=== PATIENT | male | born 1990 | race Caucasian/White ===

== ENCOUNTER 2020-10-26 11:41 | Emergency (ER) | payer BC, MEDICAID ==
[~2020-10-26] VITALS: Ht 175.3 cm; Wt 72.6 kg
[2020-10-26 11:49] VITALS: BP_SYST 130
[2020-10-26 13:02] VITALS: BP_SYST 130
== END 2020-10-26 13:02 | disposition home or self-care (01) ==
LOC: SED 11:41
DX: S00.33XA Contusion of nose, initial encounter (principal); Z88.0 Allergy status to penicillin; W21.05XA Struck by basketball, initial encounter; Y93.67 Activity, basketball; Y92.89 Other specified places as the place of occurrence of the external cause; Y99.8 Other external cause status
CPT/HCPCS: 70160-TC; 99283